=== PATIENT | female | born 1990 | race Native Hawaiian/Other Pacific Islander ===

== ENCOUNTER 2017-05-02 19:39 | Emergency (ER) | payer MEDICAID ==
[2017-05-02 23:04] LABS: Basophils % (Auto) 0.6 % (0.0-1.8); Eosinophils % (Auto) 5.3 % (0.0-4.3); Hemoglobin 12.2 gm/dl (10.1-14.3); Mean Corpuscular HGB Conc 34 % (30-34); Mean Corpuscular Hemoglobin 30 pg (28-32); Mean Corpuscular Volume 89 fl (79-97); Platelet Count 245 K/mm3 (140-440); Red Blood Count 4.06 M/mm3 (3.65-5.03); Red Cell Distribution Width 13.1 % (13.2-15.2); White Blood Count 11.9 K/mm3 (4.5-11.0)
[2017-05-02 23:29] LABS: Alanine Aminotransferase 9 units/L (7-56); Albumin 3.9 g/dL (3.9-5); Albumin/Globulin Ratio 1.2 %; Alkaline Phosphatase 40 units/L (35-129); Anion Gap 19 mmol/L; BUN/Creatinine Ratio 16.66; Blood Urea Nitrogen 5 mg/dL (7-17); Calcium 8.9 mg/dL (8.4-10.2); Carbon Dioxide 20 mmol/L (22-30); Chloride 100.8 mmol/L (98-107); Glucose 122 mg/dL (65-100); Lipase 21 units/L (13-60); Potassium 3.6 mmol/L (3.6-5.0); Sodium 136 mmol/L (137-145); Total Protein 7.2 g/dL (6.3-8.2)
--- NOTE | 2017-05-03 00:51 | Ultrasound Report ---
FINAL REPORT PROCEDURE: US OB TRANSVAGINAL TECHNIQUE: Real-time transabdominal and transvaginal sonography of the uterus, placenta, amniotic fluid, adnexa, and fetus was performed with image documentation. Measurements were obtained to determine age/size. M-mode Doppler was used to document heartbeat. CPT 88567 [place] [id number] HISTORY: pelvic pain COMPARISON: No prior studies are available for comparison. FINDINGS: ADDITIONAL GESTATION: None. CRL: 33 mm, which corresponds to a gestational age of: 10 weeks, 1 days. Yolk Sac: Normal. Embryonic Cardiac Activity: 163 beats per minute Gestational Sac: Small subchorionic hemorrhage noted this measures up to 1 centimeter. Amniotic fluid: Normal. Cervix: Normal. Right Ovary: There are cysts identified on the right ovary the largest measures 16 millimeters. Left Ovary: Small cyst left ovary measures 8 millimeters. Estimated delivery date: 11/28/2017 Uterus and adnexa: As above IMPRESSION: 1. Single live intrauterine gestation at approximately 10 weeks, 1 days. 2. EDC by US 11/28/2017 3. Complete anatomic survey at 18-20 weeks suggested.
--- NOTE | 2017-05-03 00:52 | Ultrasound Report ---
FINAL REPORT PROCEDURE: Ultrasound obstetrical, transabdominal and transvaginal TECHNIQUE: Real-time transabdominal and transvaginal sonography of the uterus, placenta, amniotic fluid, adnexa, and fetus was performed with image documentation. Measurements were obtained to determine age/size. M-mode Doppler was used to document heartbeat. C[place] 02685 [place] [id number] HISTORY: pelvic pain COMPARISON: No prior studies are available for comparison. FINDINGS: ADDITIONAL GESTATION: None. CRL: 33 mm, which corresponds to a gestational age of: 10 weeks, 1 days. Yolk Sac: Normal. Embryonic Cardiac Activity: 163 beats per minute Gestational Sac: Small subchorionic hemorrhage noted this measures up to 1 centimeter. Amniotic fluid: Normal. Cervix: Normal. Right Ovary: There are cysts identified on the right ovary the largest measures 16 millimeters. Left Ovary: Small cyst left ovary measures 8 millimeters. Estimated delivery date: 11/28/2017 Uterus and adnexa: As above IMPRESSION: 1. Single live intrauterine gestation at approximately 10 weeks, 1 days. 2. EDC by US 11/28/2017 3. Complete anatomic survey at 18-20 weeks suggested.
[2017-05-03 04:19] VITALS: BP 97/62
== END 2017-05-03 04:19 | disposition left against medical advice (07) ==
LOC: ED 19:39
DX: R10.9 Unspecified abdominal pain (principal); Z53.21 Procedure and treatment not carried out due to patient leaving prior to being seen by health care provider
CPT/HCPCS: 36415; 76801; 76817; 80053; 83690; 84703; 85025

== ENCOUNTER 2017-10-27 17:07 | Outpatient (CLI) | payer MEDICAID ==
[2017-10-27 17:28] VITALS: BP 100/54
[2017-10-27] MEDS ORDERED: LACTATED RINGERS 500 ML IV ONE (18:27)
[2017-10-27] MEDS ORDERED: BRETHINE SUB-Q ONE (18:36)
[2017-10-27] MEDS ORDERED: LACTATED RINGERS 1,000 ML IV ONE (18:37)
[2017-10-27 18:39] LABS: Bacteria,Urine 1+ /HPF (Negative); Bilirubin,Urine NEG (Negative); Blood,Urine LG (Negative); Color,Urine Yellow (Yellow); Mucus,Urine FEW /HPF; Nitrite,Urine NEG (Negative); Protein,Urine <15 mg/dL mg/dL (Negative)
[2017-10-27] MEDS ORDERED: BRETHINE ONE (18:40)
== END 2017-10-27 19:41 | disposition home or self-care (01) ==
LOC: TRG 17:07
PROVIDERS: ATTEND Obstetrics & Gynecology
DX: O47.03 False labor before 37 completed weeks of gestation, third trimester (principal); Z3A.35 35 weeks gestation of pregnancy
CPT/HCPCS: 59025; 81001; 96360; 96361; 96372; J3105; J7120

== ENCOUNTER 2017-10-28 10:46 | Outpatient (CLI) | payer MEDICAID ==
[2017-10-28] MEDS ORDERED: LACTATED RINGERS 1,000 ML ONE (11:52)
[2017-10-28 12:12] VITALS: BP 93/46
[2017-10-28] MEDS ORDERED: LACTATED RINGERS 1,000 ML IV SCH (13:00)
[2017-10-28 14:06] LABS: Bacteria,Urine 1+ /HPF (Negative); Bilirubin,Urine NEG (Negative); Blood,Urine LG (Negative); Color,Urine Yellow (Yellow); Mucus,Urine FEW /HPF; Nitrite,Urine NEG (Negative); Protein,Urine <15 mg/dL mg/dL (Negative); Urobilinogen,Urine < 2.0 mg/dL (<2.0)
== END 2017-10-28 13:40 | disposition home or self-care (01) ==
LOC: TRG 10:46
PROVIDERS: ATTEND Obstetrics & Gynecology
DX: O47.03 False labor before 37 completed weeks of gestation, third trimester (principal); Z3A.35 35 weeks gestation of pregnancy
CPT/HCPCS: 81001; J7120

== ENCOUNTER 2017-10-29 07:46 | Outpatient (CLI) | payer MEDICAID ==
[2017-10-29] MEDS ORDERED: LACTATED RINGERS 500 ML IV ONE (08:13)
[2017-10-29] MEDS ORDERED: BRETHINE ONE (08:14)
[2017-10-29] MEDS ORDERED: LACTATED RINGERS 1,000 ML ONE (08:14)
[2017-10-29 08:19] VITALS: BP 109/68
[2017-10-29] MEDS ORDERED: LACTATED RINGERS 1,000 ML IV SCH (09:00)
[2017-10-29] MEDS ORDERED: BRETHINE SUB-Q SCH (09:00)
[2017-10-29 09:09] LABS: Bilirubin,Urine NEG (Negative); Blood,Urine LG (Negative); Color,Urine Yellow (Yellow); Mucus,Urine FEW /HPF; Nitrite,Urine NEG (Negative); Protein,Urine <15 mg/dL mg/dL (Negative); Urobilinogen,Urine < 2.0 mg/dL (<2.0)
== END 2017-10-29 10:34 | disposition left against medical advice (07) ==
LOC: TRG 07:46
PROVIDERS: ATTEND Obstetrics & Gynecology
DX: O47.03 False labor before 37 completed weeks of gestation, third trimester (principal); Z3A.35 35 weeks gestation of pregnancy
CPT/HCPCS: 59025; 81001; 96360; 96372; J3105; J7120

== ENCOUNTER 2022-02-11 22:53 | Emergency (ER) | payer SELFPAY | END 2022-02-12 00:15 | disposition left against medical advice (07) | LOC: ED 22:53 | DX: R10.9 Unspecified abdominal pain (principal); Z53.21 Procedure and treatment not carried out due to patient leaving prior to being seen by health care provider ==